=== PATIENT | female | born 1980 | race Caucasian/White ===

== ENCOUNTER 2017-05-12 08:05 | Day surgery (SDC) | payer BC ==
[2014-09-26 08:33] VITALS: BMI 21.6
[2017-05-12] MEDS ORDERED: Lactated Ringer's 500 ML IV ONE (08:50)
[2017-05-12 09:13] VITALS: TEMP 97.5; O2SAT 100
[2017-05-12] MEDS ORDERED: Midazolam 2 MG/2 ML VIAL ONE (09:50)
[2017-05-12] MEDS ORDERED: Propofol 10 mg/ml Inj (20 ML) ONE (09:50)
[2017-05-12 10:31] VITALS: BP 114/78; PULSE 71; RESP 14
== END 2017-05-12 11:00 | disposition home or self-care (01) ==
LOC: H.ENDO 08:05
PROVIDERS: ATTEND Internal Medicine Gastroenterology
DX: R10.13 Epigastric pain (principal); K29.70 Gastritis, unspecified, without bleeding; K44.9 Diaphragmatic hernia without obstruction or gangrene
CPT/HCPCS: 43239; 88305; J2001; J2250; J2704; J3010; J7120

== ENCOUNTER 2017-12-18 06:13 | Day surgery (SDC) | payer BC ==
[2017-12-10 13:42] VITALS: BMI 29.9
[2017-12-18 06:50] LABS: BASO % 0.2 % (0.0-2.0); EOS # 0.1 K/uL (0.0-0.7); EOS % 0.7 % (0.0-4.0); HEMOGLOBIN 14.3 g/dL (12.0-16.0); LYMPH # 3.9 K/uL (1.0-4.3); LYMPH % 42.1 % (20.0-40.0); MEAN CELL VOLUME 84.5 fl (81.0-99.0); MEAN CORPUSCULAR HEMOGLOBIN 28.2 pg (27.0-31.0); MEAN CORPUSCULAR HGB CONC 33.4 g/dL (33.0-37.0); MEAN PLATELET VOLUME 7.2 fl (7.2-11.7); MONO # 0.8 K/uL (0.0-0.8); MONO % 8.3 % (0.0-10.0); NEUT # 4.5 K/uL (1.8-7.0); NEUT % 48.7 % (50.0-75.0); NRBC % 0.2 % (0.0-0.0); RBC 5.05 Mil/uL (3.80-5.20); RED CELL DISTRIBUTION WIDTH 14.2 % (11.5-14.5); WHITE BLOOD COUNT 9.2 K/uL (4.8-10.8)
[2017-12-18] MEDS ORDERED: Rocuronium 10 mg/ml (5 ml) ONE (07:18)
[2017-12-18] MEDS ORDERED: Midazolam 2 MG/2 ML VIAL ONE (07:18)
[2017-12-18] MEDS ORDERED: ePHEDrine 50 mg/ml Inj ONE (07:18)
[2017-12-18] MEDS ORDERED: Propofol 10 mg/ml Inj (20 ML) ONE (07:18)
[2017-12-18] MEDS ORDERED: Succinylcholine 200 mg/10 ml Inj IV ONE (07:18)
[2017-12-18] MEDS ORDERED: Vasopressin 20 Units/ml Inj ONE (07:30)
[2017-12-18] MEDS ORDERED: Lactated Ringer's 1,000 ML IV ONE ×2 (08:00→08:10)
[2017-12-18] MEDS: Bupivacaine 0.5% Inj(30mL) ONE ×2 (08:30→08:33)
[2017-12-18] MEDS ORDERED: Dexamethasone 4 mg/1 ml ONE (08:41)
[2017-12-18] MEDS ORDERED: Desflurane Inhalation Anesthetic Liq (240 ml) ONE (09:06)
[2017-12-18] MEDS ORDERED: HYDROmorphone 0.5 mg/0.5 ml ISec IVP PRN (10:09)
[2017-12-18 10:10] VITALS: RESP 18
[2017-12-18] MEDS ORDERED: Oxycodone/Acetaminophen 5/325 mg Tab PO PRN (10:18)
--- NOTE | 2017-12-18 11:19 | HP ---
HISTORY OF PRESENT ILLNESS: This is a 37-year-old -0-0-2, last menstrual period was 12/12/2017 who reports that she has been having a lot of pain and cramps especially during intercourse. She has these symptoms for a few months now. The patient reports that the pain is on the left side during intercourse and the patient had an ultrasound on 11/04/2017 that revealed an IUD in satisfactory position and increase in size of pedunculated left-sided uterine fibroids, which now measures up to 6.3 cm. Few new additional fibroids were present and normal ovaries. The patient is scheduled today for a robotic myomectomy of that large left-sided pedunculated fibroids. PAST MEDICAL HISTORY: The patient has Helicobacter pylori, recurrent UTI and a history of urinary calcium stones followed through the urologist. MEDICATIONS: Omeprazole 40 mg one capsule daily. PAST SURGICAL HISTORY: Breast reduction surgery in 2004, Mirena removed and a new one placed in the OR by in 10/2014 and the patient had an EGD in 2016. FAMILY HISTORY: Father , he had diabetes. Mother is alive, has a history of heart disease and hypertension, but the patient denies any significant family history of any cancer. SOCIAL HISTORY: The patient denies tobacco. Reports that she drinks about 1 to 2 drinks about 2-4 times a month and she denies any illicit drug use. The patient is , works in customer service. ENTRY EXAMINER HISTORY: The patient reports that she has periods every months. She denies any sexually transmitted diseases. She denies any abnormal Paps and she had her Mirena placed in 10/2014. OB HISTORY: The patient has undergone 2 vaginal deliveries. ALLERGIES: NO KNOWN DRUG ALLERGIES. PHYSICAL EXAMINATION: GENERAL APPEARANCE: No apparent distress. ABDOMEN: Soft, nontender. No masses palpated. GENITOURINARY: Vagina normal. Cervix normal. No cervical motion tenderness. No IUD string was palpated. Uterus felt to be normal size and mobile. IMAGING: As above. ASSESSMENT AND PLAN: This is a 37-year-old -0-0-2 who is having a lot of left-sided pelvic pain especially during intercourse for the last few months with a known 6.3 cm pedunculated fibroid on the left side of her uterus, who is scheduled for robotic myomectomy. Risks, benefits, and alternatives were discussed with the patient. Consents were signed. Curtis Drake MD
[2017-12-18 11:45] VITALS: O2SAT 99
[2017-12-18 15:57] VITALS: BP 110/70; PULSE 89; TEMP 98
--- NOTE | 2017-12-19 00:42 | OP ---
PROCEDURE DATE: 12/18/2017 PREOPERATIVE DIAGNOSIS: This is a 37-year-old with pelvic pain with a known large left pedunculated fibroid. POSTOPERATIVE DIAGNOSIS: A large fibroid in the left broad ligament. PROCEDURE: A robotic myomectomy. SURGEON: Curtis Drake MD IRRIGATION TEACHER: MD Dr. Yg Burns was the integration assistant. He was instrumental in the care of the patient. He helped in placing the ports into the abdomen and was essential in extraction of the specimen as well as in the suction and irrigation of the abdomen at the end of the procedure. He was present for the closure of the patient. The procedure would not have been possible without his assistance. TYPE OF ANESTHESIA: General endotracheal tube anesthesia. ANESTHESIA ADMINISTERED BY: Dr. Espinosa. FINDINGS: A large about 6 cm fibroid in the left broad ligament otherwise the ovaries and tubes appeared normal. The uterus appeared to have small fibroid. COMPLICATIONS: None. DESCRIPTION OF PROCEDURE: After informed consent was obtained, the patient was taken to the operating room where she was placed under general anesthesia. She was then placed in the dorsal lithotomy position and prepped and draped in the usual sterile fashion. A bivalved speculum was then placed in the vagina. The cervix was visualized, grasped with a single-tooth tenaculum and then gently dilated. The HUMI uterine manipulator was then advanced into the uterus to provide a means to manipulate the uterus. The tenaculum and speculum were removed from the vagina. A Rebolledo catheter was inserted into the patient's bladder. Attention was then turned to the area above the umbilicus where an 8 mm vertical incision was made after the infusion of Marcaine. A Veress needle was inserted into the abdominal cavity. The abdomen was insufflated to 18 mmHg. A Veress needle was inserted into the abdominal cavity. The placement of the needle was confirmed using saline drop method. The abdomen was then insufflated to 18 mmHg and 8 mm port was introduced into the abdomen and placement was confirmed with the laparoscope. The abdomen was surveyed. Approximately, 10 cm above the right superior anterior iliac spine, the skin was infused with Marcaine and an 8 mm port was introduced into the abdominal cavity under direct visualization. Attention was then turned to the left side and an 8 mm port was placed in the similar fashion. Approximately 10 cm right and lateral to the umbilicus, the skin was infused with Marcaine and an 8 mm port was introduced into the abdominal cavity under direct visualization and an additional 5 mm port was placed about 10 cm left and lateral to the umbilicus. The patient was then placed in Trendelenburg. The instruments used for the surgery were PK dissector, scissor and . The instruments were inserted under visualization, the robot was docked without complications. I then proceeded to break scrub and moved over to the surgical console. Attention was then turned to the left fibroid that was in the left broad ligament. Initially, the tissue was and fibroid was gradually freed from the broad ligament with sharp and blunt dissection. The bleeders were coagulated using the PK. The area of the broad ligament from which the fibroid was removed was cauterized using PK for hemostasis. The area was then irrigated and suctioned. The fibroid was then placed in the anterior cul-de-sac and Endo Catch bag was inserted into the abdomen. The specimen was placed into the Endo bag. The Endo bag was removed through the supraumbilical incision, which had been extended to accommodate the size of the fibroid. The incision was probably a total length of about 5 cm. All instruments were removed from the abdomen. The ports were then removed from the abdomen. The lateral incisions were made hemostatic with a single stitch with a 4-0 Monocryl followed by the application of Dermabond. Initially the fascia was closed and then the skin was closed with subcuticular stitches using 4-0 Monocryl. The HUMI was then removed from the vagina with no bleeding from the cervix and the Rebolledo was then removed from the bladder. The patient tolerated the procedure well. All counts were correct. The patient was taken to the recovery room in stable condition. The patient received 2 g of cefazolin prior to the beginning of the case. Curtis Drake MD
== END 2017-12-18 16:30 | disposition home or self-care (01) ==
LOC: H.OPSURG 06:13
PROVIDERS: ATTEND Obstetrics & Gynecology
DX: D25.9 Leiomyoma of uterus, unspecified (principal); K21.9 Gastro-esophageal reflux disease without esophagitis; Z87.440 Personal history of urinary (tract) infections
CPT/HCPCS: 36415; 58545; 85025; 86850; 86900; 88305; J0330; J0690; J1100; J1170; J1885; J2001; J2250; J2405; J2704; J3010; J7120